=== PATIENT | male | born 1990 | race African-American/Black ===

== ENCOUNTER 2017-10-19 00:40 | Emergency (ER) | payer SELFPAY ==
[~2017-10-19] VITALS: Ht 185.4 cm; Wt 78.0 kg
[2017-10-19 00:42] VITALS: BP 121/59; PULSE 104; RESP 20; TEMP 99.9; O2SAT 94
[2017-10-19] MEDS ORDERED: VENTAER INH (00:47)
--- NOTE | 2017-10-19 01:27 | PD ---
HPI Chief Complaint: Cold / Flu Symptoms Time Seen by Provider: 01:22 Travel History International Travel<30 days: No Contact w/Intl Traveler<30days: No Traveled to known affect area: No History of Present Illness HPI 37-year-old male presents to the emergency department for complaint of chest pain and shortness of breath. Patient has history of asthma and admits to smoking cigarettes marijuana and states that he works in [employer]. Patient is exposed to multiple respiratory irritants. Patient has had congested cough. Patient states this evening while smoking a cigarette he got up quickly and felt lightheaded and slid down against the wall thought he was going to faint. Patient states he noted some discomfort after forceful coughing and decided to come to the emergency room. Patient denies personal history of CAD hypertension dyslipidemia or diabetes however does have a family history of premature onset heart disease with his father having IA at age 40 and does have stents. Patient reports that he feels like he is having an asthma exacerbation. Patient states it has been sometime since he has had an asthma exacerbation. Patient denies any injury or trauma and. PFSH Past Medical History Narrative Medical Asthma immunizations current no surgeries tobacco use marijuana use family history CAD; nursing notes reviewed Asthma: Yes Immunizations Current: Yes Tetanus Vaccination: Unknown Influenza Vaccination: No Past Surgical History Surgical History: No Previous Surgery Social History Alcohol Use: No Tobacco Use: Yes Substance Use: No Allergies-Medications (Allergen,Severity, Reaction): Coded Allergies: No Known Allergies (Unverified , 10/19/17) Reported Meds & Prescriptions Reported Meds & Active Scripts Active Zithromax Z-Clayton (Azithromycin) 250 Mg Dspk 250 Mg PO DIRECTED 500 MG (2 tabs) day 1, then 1 tab days 2-5. Medrol Dosepak (Methylprednisolone) 4 Mg Dspk 4 Mg PO DIRECTED Per Pharmacist direction Proair Hfa 8.5 GM Inh (Albuterol Sulfate) 90 Mcg/Act Aer 2 Puff INH Q4-6H PRN 108 mcg/actuation Reported Ventolin Hfa 18 GM Inh (Albuterol Sulfate) 90 Mcg/Act Aer 1 Puff INH Q4H PRN Review of Systems Except as stated in HPI: all other systems reviewed are Neg Physical Exam Narrative GENERAL: Well-developed well-nourished male no acute distress no respiratory distress SKIN: Warm and dry. HEAD: Normocephalic. EYES: No scleral icterus. No injection or drainage. NECK: Supple, trachea midline. No JVD or lymphadenopathy. CARDIOVASCULAR: Regular rate and rhythm without murmurs, gallops, or rubs. RESPIRATORY: Breath sounds equal bilaterally. No accessory muscle use. GASTROINTESTINAL: Abdomen soft, non-tender, nondistended. MUSCULOSKELETAL: No cyanosis, or edema. BACK: Nontender without obvious deformity. No CVA tenderness. Data Data Last Documented VS Vital Signs Date Time Temp Pulse Resp B/P (MAP) Pulse Ox O2 Delivery O2 Flow Rate FiO2 10/19/17 04:59 10/19/17 01:36 81 18 94 Room Air 10/19/17 00:42 99.9 Orders Orders Complete Blood Count With Diff (10/19/17:22) Basic Metabolic Panel (Bmp) (10/19/17 01:22) Magnesium (Mg) (10/19/17 01:22) Ckmb (Isoenzyme) Profile (10/19/17:22) Troponin I (10/19/17:22) Iv Access Insert/Monitor (10/19/17 01:22) Electrocardiogram (10/19/17 01:22) Ecg Monitoring (10/19/17:22) Oximetry (10/19/17:22) Oxygen Administration (10/19/17:22) Chest, Single Ap (10/19/17 01:22) Sodium Chloride 0.9% Flush (Ns Flush) (10/19/17 01:30) Methylprednisolone So Succ Inj (Solumedr (10/19/17 01:30) Albuterol-Ipratropium Neb (Duoneb Neb) (10/19/17 01:30) Sodium Chlor 0.9% 1000 Ml Inj (Ns 1000 M (10/19/17 01:30) CKMB (10/19/17 01:30) CKMB% (10/19/17 01:30) Sodium Chlor 0.9% 1000 Ml Inj (Ns 1000 M (10/19/17 04:00) Potassium Chloride (Kcl) (10/19/17 04:00) Ed Discharge Order (10/19/17 03:55) Labs Laboratory Tests Test 10/19/17 01:30 White Blood Count 6.6 TH/MM3 Red Blood Count 5.58 MIL/MM3 Hemoglobin 13.2 GM/DL Hematocrit 40.3 % Mean Corpuscular Volume 72.2 FL Mean Corpuscular Hemoglobin 23.7 PG Mean Corpuscular Hemoglobin Concent 32.8 % Red Cell Distribution Width 14.9 % Platelet Count 211 TH/MM3 Mean Platelet Volume 8.4 FL Neutrophils (%) (Auto) 72.8 % Lymphocytes (%) (Auto) 15.9 % Monocytes (%) (Auto) 6.9 % Eosinophils (%) (Auto) 4.0 % Basophils (%) (Auto) 0.4 % Neutrophils # (Auto) 4.8 TH/MM3 Lymphocytes # (Auto) 1.0 TH/MM3 Monocytes # (Auto) 0.5 TH/MM3 Eosinophils # (Auto) 0.3 TH/MM3 Basophils # (Auto) 0.0 TH/MM3 CBC Comment DIFF FINAL Differential Comment Blood Urea Nitrogen 12 MG/DL Creatinine 1.34 MG/DL Random Glucose 89 MG/DL Calcium Level 8.7 MG/DL Magnesium Level 2.2 MG/DL Sodium Level 142 MEQ/L Potassium Level 3.4 MEQ/L Chloride Level 104 MEQ/L Carbon Dioxide Level 27.9 MEQ/L Anion Gap 10 MEQ/L Estimat Glomerular Filtration Rate 64 ML/MIN Total Creatine Kinase 611 U/L Creatine Kinase MB 1.9 NG/ML Creatine Kinase MB % 0.3 % Troponin I LESS THAN 0.02 NG/ML MDM Medical Decision Making Medical Screen Exam Complete: Yes Emergency Medical Condition: Yes Medical Record Reviewed: Yes Interpretation(s) EKG normal sinus rhythm rate [address] elevation or injury pattern change Last Impressions Chest X-Ray 10/19/17 0122 Signed Impressions: CONCLUSION: No acute cardiopulmonary disease. CBC & BMP Diagram 10/19/17 01:30 Calcium Level 8.7, Magnesium Level 2.2 Vital Signs Date Time Temp Pulse Resp B/P (MAP) Pulse Ox O2 Delivery O2 Flow Rate FiO2 10/19/17 01:36 81 18 122/65 (84) 94 Room Air 10/19/17 00:42 99.9 104 20 121/59 (79) 94 Differential Diagnosis Dyspnea exacerbation asthma bronchitis pneumonia chest pain atypical chest pain pneumothorax PE musculoskeletal pain also to consider ACS Narrative Course Patient placed on site monitor with continuous pulse oximetry IV access obtain EKG performed reveals no acute ST elevation or injury pattern patient administered Solu-Medrol and given DuoNeb updraft 2 chest x-ray ordered Chest x-ray reveals no acute abnormality Lab values remarkable for elevated CK of 600 with mild elevation of creatinine 1.34 Patient is encouraged to hydrate aggressively and follow-up with primary care provider regarding follow-up of elevated CK and patient is aware that this is contributing to his myalgias and arthralgias No report of hematuria. Patient given work excuse and diagnosed with exacerbation of asthma bronchitis and elevated CK patient is aware of need for close follow-up. Patient is desirous of going home therefore will give him a trial of outpatient management with close follow-up with his primary encouraged to hydrate aggressively. Patient given work excuse for 2 days. Diagnosis Primary Impression: Exacerbation of asthma Additional Impressions: Bronchitis Elevated CK Referrals: Primary Care Physician call for appointment Patient Instructions: General Instructions Additional Instructions: Increase fluid hydration Follow-up with your primary care provider Take medications as prescribed May take acetaminophen/Tylenol as needed for fever 100.4F or greater No work 1 day Med/Other Pt SpecificInfo: Prescription(s) given Scripts Azithromycin (Zithromax Z-Clayton) 250 Mg Dspk 250 MG PO DIRECTED for Infection, #1 DSPK 0 Refills 500 MG (2 tabs) day 1, then 1 tab days 2-5. Prov: Rosario Meza MD 10/19/17 Methylprednisolone Dosepak (Medrol Dosepak) 4 Mg Dspk 4 MG PO DIRECTED, #1 DSPK 0 Refills Per Pharmacist direction Prov: Rosario Meza MD 10/19/17 Albuterol 8.5 GM Inh (Proair Hfa 8.5 GM Inh) 90 Mcg/Act Aer 2 PUFF INH Q4-6H Y for SHORTNESS OF BREATH, #1 INHALER 0 Refills 108 mcg/actuation Prov: Rosario Meza MD 10/19/17 Disposition: DISCHARGE HOME Condition: Stable Rosario Meza MD October 19, 2017 01:26
[2017-10-19] MEDS ORDERED: SODIUM CHLOR 0.9% 1000 ML INJ 1,000 ML IV ONE ×2 (01:30→04:00)
[2017-10-19] MEDS ORDERED: SODIUM CHLORIDE 0.9% FLUSH 10 ML FLUSH IVF PRN (01:30)
[2017-10-19] MEDS ORDERED: methylPREDNISolone SOD SUCC 125 MG/2 ML VIAL IV PUSH ONE (01:30)
[2017-10-19] MEDS: RESP: ALBUTEROL 2.5 MG/IPRATROPIUM 0.5 MG NEB (SCH) INH (01:32)
[2017-10-19 01:36] VITALS: BP 122/65; PULSE 81; RESP 18; O2SAT 94
[2017-10-19 01:43] LABS: AUTOMATED NEUTROPHIL # 4.8 TH/MM3 (1.8-7.7); BASOPHIL % 0.4 % (0.0-2.0); EOSINOPHIL # 0.3 TH/MM3 (0-0.4); HEMATOCRIT 40.3 % (39.0-51.0); HEMOGLOBIN 13.2 GM/DL (13.0-17.0); LYMPH % 15.9 % (9.0-44.0); MEAN CELL VOLUME 72.2 FL (80.0-100.0); MEAN CORPUSCULAR HEMOGLOBIN 23.7 PG (27.0-34.0); MEAN CORPUSCULAR HGB CONC 32.8 % (32.0-36.0); MEAN PLATELET VOLUME 8.4 FL (7.0-11.0); MONO % 6.9 % (0.0-8.0); MONOCYTE # 0.5 TH/MM3 (0-0.9); NEUT % 72.8 % (16.0-70.0); PLATELET COUNT 211 TH/MM3 (150-450); RED BLOOD COUNT 5.58 MIL/MM3 (4.50-5.90); RED CELL DISTRIBUTION WIDTH 14.9 % (11.6-17.2); WHITE BLOOD COUNT 6.6 TH/MM3 (4.0-11.0)
--- NOTE | 2017-10-19 02:32 | RADRPT ---
EXAM DATE: 10/19/2017 2:28 AM EDT AGE/SEX: 27 years / Male INDICATIONS: Shortness of breath, chest pain, cough, congestion, fever. CLINICAL DATA: This is the patient's initial encounter. Patient reports that signs and symptoms have been present for 1 week and indicates a pain score of 4/10. MEDICAL/SURGICAL HISTORY: . Smoker. None. COMPARISON: No prior exams available for comparison. FINDINGS: The lungs are clear without infiltrate, nodule, or mass. There is no appreciable pleural effusion for technique. Heart and mediastinum are unremarkable. CONCLUSION: No acute cardiopulmonary disease. Electronically signed by: Rudolph Andersen MD 10/19/2017 2:30 AM EDT
[2017-10-19 02:43] LABS: BICARBONATE 27.9 MEQ/L (21.0-32.0); BLOOD UREA NITROGEN 12 MG/DL (7-18); CALCIUM 8.7 MG/DL (8.5-10.1); CHLORIDE 104 MEQ/L (98-107); CREATININE 1.34 MG/DL (0.60-1.30); GLOMERULAR FILTRATION RATE 64 ML/MIN (>89); GLUCOSE,RANDOM 89 MG/DL (74-106); MAGNESIUM 2.2 MG/DL (1.5-2.5); SODIUM (NA) 142 MEQ/L (136-145)
[2017-10-19 02:47] LABS: TROPONIN I LESS THAN 0.02 NG/ML (0.02-0.05)
[2017-10-19] MEDS ORDERED: ALBUAER3 INH (03:53)
[2017-10-19] MEDS ORDERED: ZITHTAB PO (03:53)
[2017-10-19] MEDS ORDERED: MEDR4PAK PO (03:53)
[2017-10-19] MEDS ORDERED: POTASSIUM CHLORIDE 20 MEQ CONTROLLED RELEASE TAB PO ONE (04:00)
--- NOTE | 2017-10-19 08:02 | EKG ---
Date Performed: 10/19/2017 Time Performed: 01:17:20 PTAGE: 27 years EKG: Sinus rhythm POSSIBLE LEFT ATRIAL ENLARGEMENT BORDERLINE ECG NO PREVIOUS TRACING DOCTOR: Rasheed Cano Interpretating Date/Time 10/19/2017 08:01:44
== END 2017-10-19 05:02 | disposition home or self-care (01) ==
LOC: NEPC 00:40
DX: J45.901 Unspecified asthma with (acute) exacerbation (principal); R74.8 Abnormal levels of other serum enzymes; R94.31 Abnormal electrocardiogram [ECG] [EKG]; F17.210 Nicotine dependence, cigarettes, uncomplicated; F12.90 Cannabis use, unspecified, uncomplicated
CPT/HCPCS: 71045; 80048; 82550; 82552; 83735; 84484; 85025; 93005; 94640; 94664; 96374; 99285; J2930; J7030